=== PATIENT | female | born 1980 | race Caucasian/White ===

== ENCOUNTER → 2016-05-28 | Outpatient (CLI) | payer BC ==
[~2016-05-28] MED LIST: AMOXICILLIN 50500 MG PO; CLARINEX 5MG5 MG PO; DOXYCYCLINE 10100 MG PO; FLEXERIL 1010 MG/TAB PO; NORCO 325 MG-51 TAB PO; PROAIR HFA0.09 MG/AC IH; RT ADVAIR HFA 1112 G IH; SINGULAIR 110 MG/TAB PO; ULTRAM 50MG TAB50 MG PO
== END ==
LOC: MC.RAD 11:03
DX: Z12.31 Encounter for screening mammogram for malignant neoplasm of breast (principal); D24.2 Benign neoplasm of left breast; D24.1 Benign neoplasm of right breast

== ENCOUNTER → 2016-12-27 | Outpatient (CLI) | payer BC | LOC: COL.RAD 12-26 10:30 | DX: K80.50 Calculus of bile duct without cholangitis or cholecystitis without obstruction (principal); R10.9 Unspecified abdominal pain ==

== ENCOUNTER → 2017-01-09 | Outpatient (CLI) | payer BC | LOC: COL.RAD 05:57 | DX: K80.50 Calculus of bile duct without cholangitis or cholecystitis without obstruction (principal) | CPT/HCPCS: A9537 ==

== ENCOUNTER → 2017-12-12 | Outpatient (CLI) | payer BC | LOC: ZCOL.LAB 17:30 | DX: J04.0 Acute laryngitis (principal) ==

== ENCOUNTER 2018-04-24 10:24 | Outpatient (RCR) | payer OTHER | END 2018-05-06 08:52 | LOC: WSOH 10:24 | DX: Z02.9 Encounter for administrative examinations, unspecified (principal) ==

== ENCOUNTER 2019-06-23 06:56 | Day surgery (SDC) | payer BC ==
[~2019-06-23] VITALS: Ht 162.6 cm; Wt 55.1 kg
[2019-06-23 07:16] VITALS: BP 101/67; PULSE 80; TEMP 98.3
[2019-06-23] MEDS ORDERED: UBRELVY50 MG PO (07:27)
[2019-06-23] MEDS ORDERED: PROTONIX 40MG T40 MG PO (07:27)
[2019-06-23] MEDS ORDERED: ZOFRAN 4MG T4 MG/TAB PO (07:28)
[2019-06-23] MEDS ORDERED: LINZESS145CAP PO (07:28)
[2019-06-23] MEDS ORDERED: TOPAMAX 25MG25 M1 PO (07:28)
[2019-06-23 09:18] VITALS: BP 103/69; PULSE 89; TEMP 97.9
--- NOTE | 2019-06-23 09:18 | NUR ---
The patient arrived back to [facility] from the endoscopy suite at this time. The patient ambulated from the cart to the recliner in her room with the stand by assistance of two nurses and appeared to tolerate the activity well. Post procedure vital signs were started at this time. The patient continues to appear drowsy so the nurse is going to wait to have her try anything to eat or drink. Call light is within reach. Will continue to monitor the patient.
[2019-06-23 09:36] VITALS: BP 95/66; PULSE 79
--- NOTE | 2019-06-23 09:37 | NUR ---
The patient is sitting up in bed and appears more alert at this time. Vital signs appear stable. The patient agrees to try some grape juice and meagan crackers at this time. Call light remains within reach. Will continue to monitor the patient.
[2019-06-23 09:50] VITALS: BP 97/67; PULSE 90
--- NOTE | 2019-06-23 09:50 | NUR ---
Discharge instructions were reviewed with the patient at this time. She verbalized understanding and has no questions for the nurse at this time. The patient's IV to her right anecubital was removed and a pressure dressing was applied to the site. The nurse instructed the patient to notify her daughter to pull up to the patient entrance to pick her up and get dressed. She is to noitfy the staff when she is ready to be escorted out.
--- NOTE | 2019-06-23 10:03 | NUR ---
The patient was escorted out via wheelchair to a private vehicle by ELISE Kasper. The patient's belongings and discharge paperwork were sent with her. The patient's daughter is present to drive her home.
== END 2019-06-23 10:03 | disposition home or self-care (01) ==
LOC: SDCO 06:56
DX: Z12.11 Encounter for screening for malignant neoplasm of colon (principal); Z86.010 Personal history of colon polyps; K64.0 First degree hemorrhoids; K29.50 Unspecified chronic gastritis without bleeding; K21.9 Gastro-esophageal reflux disease without esophagitis; J45.909 Unspecified asthma, uncomplicated; Z86.19 Personal history of other infectious and parasitic diseases; Z79.899 Other long term (current) drug therapy; Z88.1 Allergy status to other antibiotic agents
CPT/HCPCS: J2250; J2405; J3010; J7030